=== PATIENT | male | born 1965 | race Caucasian/White ===

== ENCOUNTER → 2018-11-18 11:51 | Emergency (ER) | payer OTHER ==
--- OUTSIDE RECORDS SUMMARY | 2018-11-18 11:56 | XMS REPORT | Continuity of Care Document ---
:1965 External Reference #:[id number] Author Name Bright Randall M.D. (transmitted by agent of provider Keysha Castanon) Address [address] [facility], [place] [address] Care Team Providers Name Role Phone Bright Randall III, MD - Internal Care Team Information Apron Operator [phone] Medicine Harris Steinberg MD - Gastroenterology Care Team Information Apron Operator [facility] - Care Team Information Apron Operator [phone] Counseling Problems Active Problems Provider Date Anxiety disorder Joshua Franklin NP Onset: 02/22/2014 Dysthymic disorder Bright Randall M.D. Onset: 11/29/2015 Social History Type Date Description Comments Sex Unknown ETOH Use Consumes 2 glasses of wine per day Tobacco Use Start: Unknown End: Patient is a former Quit 1996; max Unknown smoker 1ppd. Smoked about 10 years Recreational Drug Use Denies Drug Use Smoking Status Reviewed: 10/14/18 Patient is a former Quit 1996; max smoker 1ppd. Smoked about 10 years Exercise Type/Frequency Exercises sporadically walks 2-3 times/week Allergies, Adverse Reactions, Alerts Active Allergies Reaction Severity Comments Date Penicillin rash 11/24/2013 Medications Active Medications SIG Qnty Indications Ordering Provider Date Sildenafil Citrate take 1 tablet by 14tabs F52.21 Bright Randall, 2018 20mg mouth as directed M.D. Tablets 30 minutes before sexual activity Amphetamine-Dextroamp 1 tab by mouth 60caps F90.0 Bright Randall, 2015 het ER twice a day M.D. 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 a day History Medications Cialis 1 tab po daily 14tabs F52.21 Bright Randall, 10/14/2018 - 10mg as needed M.D. 10/14/2018 Tablets Immunizations CPT Code Status Date Vaccine Lot # [id number] Given 11/29/2015 Influ Virus Vaccine, Quadrivalent, Split Virus, Im [id number] Fluzone not PF Vital Signs Date Vital Result Comment 10/14/2018 10:00am Height 71 inches 5'11" Weight 174.00 lb Heart Rate 69 /min BP Systolic Sitting 105 mmHg BP Diastolic Sitting 69 mmHg Body Temperature 97.9 F BMI (Body Mass Index) 24.3 kg/m2 08/27/2018 3:06pm Height 71 inches 5'11" Weight 172.00 lb Heart Rate 78 /min BP Systolic Sitting 106 mmHg BP Diastolic Sitting 63 mmHg BMI (Body Mass Index) 24.0 kg/m2 Results Test Date Facility Test Result H/L Range Note Comp Metabolic 08/27/2018 [facility] Sodium 138 mmol/L Normal 135-145 Panel [address] [place] [address] [phone] Potassium 4.3 mmol/L Normal 3.5-5.0 Chloride 107 mmol/L Normal 101-111 Co2 Carbon Dioxide 25 mmol/L Normal 22-32 Anion Gap 6 mmol/L Normal 2-11 Glucose 104 mg/dL High 70-100 Blood Urea Nitrogen 17 mg/dL Normal 6-24 Creatinine 0.82 mg/dL Normal 0.67-1.17 BUN/Creatinine Ratio 20.7 High 8-20 Calcium 9.2 mg/dL Normal 8.6-10.3 Total Protein 7.1 g/dL Normal 6.4-8.9 Albumin 4.5 g/dL Normal 3.2-5.2 Globulin 2.6 g/dL Normal 2-4 Albumin/Globulin Ratio 1.7 Normal 1-3 Total Bilirubin 0.30 mg/dL Normal 0.2-1.0 Alkaline Phosphatase 89 U/L Normal 34-104 Alt 13 U/L Normal 7-52 Ast 19 U/L Normal 13-39 Egfr Non- 99.1 >60 Egfr 119.9 >60 1 CBC Auto 08/27/2018 [facility] White Blood 4.5 10^3/uL Normal 3.5-10.[address] [place] [address] [phone] Red Blood Count 4.49 10^6/uL Normal 4.18-5.48 Hemoglobin 13.7 g/dL Low 14.0-18.0 Hematocrit 40 % Low 42-52 Mean Corpuscular Volume 89 fL Normal 80-94 Mean Corpuscular Hemoglobin 31 pg Normal 27-31 Mean Corpuscular HGB Conc 34 g/dL Normal 31-36 Red Cell Distribution Width 15 % Normal 10-15 Platelet Count 279 10^3/uL Normal 150-450 Mean Platelet Volume 8.5 fL Normal 7.4-10.4 Abs Neutrophils 2.3 10^3/uL Normal 1.5-7.7 Abs Lymphocytes 1.6 10^3/uL Normal 1.0-4.8 Abs Monocytes 0.4 10^3/uL Normal 0-0.8 Abs Eosinophils 0.1 10^3/uL Normal 0-0.6 Abs Basophils 0.0 10^3/uL Normal 0-0.2 Abs Nucleated RBC 0.0 10^3/uL Granulocyte % 52.2 % Lymphocyte % 36.0 % Monocyte % 8.7 % Eosinophil % 2.0 % Basophil % 1.1 % Nucleated Red Blood Cells % 0.0 Laboratory test 08/27/2018 [facility] Erythrocyte Sed 4 mm/Hr Normal 0-[address] [place] [address] [phone] C Reactive Protein < 1.00 mg/L Normal <8.01 Testosterone Free 08/27/2018 [facility] Free 6.38 4.06-15.6 2 & Total [address] Testosterone ng/[place] [address] ng/dl [phone] Testosterone 399 ng/dL 240-950 3 Laboratory 08/27/2018 [facility] TSH (Thyroid 4.37 Normal 0.34 -5.60 test finding [address] Stim Horm) mcIU/mL [place], [place] [id number] [phone] 1 Because ethnic data is not always readily available, this report includes an eGFR for both -Americans and non- Americans. The National Kidney Disease Education Program (NKDEP) does not endorse the use of the MDRD equation for patients that are not between the ages of 18 and 70, are , have extremes of body size, muscle mass, or nutritional status, or are non- or non-. According to the National Kidney Foundation, irrespective of diagnosis, the stage of the disease is based on the level of kidney function: Stage Description GFR(mL/min/1.73 m(2)) 1 Kidney damage with normal or decreased GFR 90 2 Kidney damage with mild decrease in GFR 60-89 3 Moderate decrease in GFR 30-59 4 Severe decrease in GFR 15-29 5 Kidney failure <15 (or dialysis) 2 ADDITIONAL INFORMATION Testing performed by [facility]. This test was developed and its performance characteristics determined by [facility] in a manner consistent with CLIA requirements. This test has not been cleared or approved by the U.S. Food and Drug Administration. 3 ADDITIONAL INFORMATION Testing performed by [facility]at[facility]-Tandem Mass Spectrom[facility] (LC-MS/MS). This test was developed and its performance characteristics determined by [facility] in a manner consistent with CLIA requirements. This test has not been cleared or approved by the U.S. Food and Drug Administration. Test Performed by: [facility] [address] [place] [address] Procedures Date Code Description Status 10/23/2017 81132142 Colonoscopy Completed Medical Devices Description No Information Available Encounters Description No Information Available Assessments Date Code Description Provider 10/14/2018 S61.412A Laceration without foreign body of left Bright Randall M.D. hand, initial encounter 10/14/2018 Z11.3 Encounter for screening for infections Bright Randall M.D. with a predominantly sexual mode of transmission 10/14/2018 F52.21 Male erectile disorder Bright Randall M.D. 08/27/2018 F34.1 Dysthymic disorder Bright Randall M.D. 08/27/2018 R53.83 Other fatigue Bright Randall M.D. Plan of Treatment 10/14/2018 - Bright Randall M.D.S61.412A Laceration without foreign body of left hand, initial [id number] Encounter for screening for infections with a predominantly sexual mode of [id number] Male erectile disorderNew Medication:Sildenafil Citrate 20 mg - take 1 tablet by mouth as directed 30 minutes before sexual activityCialis 10 mg - 1 tab po daily as needed Functional Status Description No Information Available Mental Status Description No Information Available Referrals Description No Information Available
[2018-11-18 11:57] VITALS: BP 121/78
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
== END | disposition home or self-care (01) ==
LOC: UCEAST 11:51
DX: S09.90XA Unspecified injury of head, initial encounter (principal); W18.30XA Fall on same level, unspecified, initial encounter; Y92.018 Other place in single-family (private) house as the place of occurrence of the external cause; F41.9 Anxiety disorder, unspecified; F32.9 Major depressive disorder, single episode, unspecified; Z88.0 Allergy status to penicillin
CPT/HCPCS: 70450; 99211; G0463